=== PATIENT | male | born 1955 | race Caucasian/White ===

== ENCOUNTER 2018-01-15 05:22 | Inpatient (IN) | payer OTHER ==
[~2018-01-15] VITALS: Ht 170.2 cm; Wt 85.8 kg
[~2018-01-15 05:22] MED LIST: CIAL5TAB PO; MELO15TA20 PO; TRAM50TA PO
[2018-01-15] MEDS ORDERED: SODIUM CHLORID 0.9% 500 ML IV PRN (05:45)
[2018-01-15] MEDS ORDERED: METOPROLOL TARTRATE 25 MG TAB PO PRN (05:45)
[2018-01-15] MEDS ORDERED: LACTATED RINGER'S 1000 ML IV PRN (05:45)
[2018-01-15] MEDS ORDERED: CHLORHEXIDINE GLUCONATE 2 % 1 PACK (2 CLOTHS) TOPICAL PRN (05:45)
[2018-01-15] MEDS ORDERED: POVIDONE IODINE 5% (ANTISEPSIS KIT) 4 APPLICATIONS EACH NARE PRN (05:45)
[2018-01-15] MEDS ORDERED: VANCOMYCIN 1500 MG/NS 500 ML (for 85-99 kg) IV SCH ×2 (06:00)
[2018-01-15] MEDS ORDERED: POVIDONE IODINE 7.5% SCRUB 118 ML BOTTLE TOPICAL SCH (06:00)
[2018-01-15] MEDS ORDERED: ceFAZolin 2 GM PREMIX 50 ML IV SCH (06:00)
[2018-01-15] MEDS ORDERED: GENTAMICIN SULFATE 80 MG/2 ML VIAL ONE (06:03)
[2018-01-15] MEDS ORDERED: ACETAMINOPHEN 1000 MG/100 ML 100 ML IV ONE (06:43)
[2018-01-15] MEDS ORDERED: KETAMINE HCL 500 MG/5 ML VIAL ONE (06:43)
[2018-01-15] MEDS ORDERED: KETAMINE HCL 500 MG/10 ML VIAL ONE (06:44)
[2018-01-15] MEDS ORDERED: BUPIVACAINE LIPOSO PF 1.3% INJ 20 ML in SODIUM CHLORIDE 0.9% INJ 60 ML P-ARTICULR SCH (07:30)
[2018-01-15] MEDS ORDERED: SODIUM CHLORIDE 0.9% IV SCH ×2 (07:30→10:30)
[2018-01-15] MEDS ORDERED: TRANEXAMIC ACID IV SCH ×2 (07:30→10:30)
[2018-01-15] MEDS ORDERED: TRANEXAMIC ACID INJ 0 MG in SODIUM CHLORIDE 0.9% INJ 100 ML IV SCH (10:15)
[2018-01-15] MEDS ORDERED: DO NOT ADM ANY ANTICOAGULANT DRUGS PRN (10:18)
[2018-01-15] MEDS ORDERED: HYDR-3516 PO (10:20)
--- NOTE | 2018-01-15 10:23 | HHI.FF ---
Face to Face Verification Diagnosis: (1) S/P total hip arthroplasty Physical Therapy Gait training Hip: Total hip, Protocol: Right, Posterior hip precautions, Abduction pillow while in bed Right LE Weight Bearing: WB as tolerated Right LE Range of Motion: No ROM Nursing Nursing: Janusz teaching, Dressing changes (remove postop dressing on saturdayjanuary 22, daily primapore dressing) Dressing Changes: Coverderm/Primapore I have seen patient Anders Pappas on 01/15/18. My clinical findings support the need for the requested home health care services because: Limited ability to care for self Injectable med education/admin I certify that my clinical findings support that this patient is homebound because: Unsafe to leave home unassisted Unable to use public transportation Markel Sequeira MD Jan 15, 2018 10:23
[2018-01-15] MEDS ORDERED: ADJUSTABLE COMM1 MIS (10:25)
[2018-01-15] MEDS ORDERED: WALKER WHEELS/F1 MIS (10:25)
[2018-01-15] MEDS ORDERED: ONDANSETRON HCL 4 MG/2 ML VIAL IVP PRN (10:30)
[2018-01-15] MEDS ORDERED: NALOXONE HCL 0.4 MG/ML AMP IV PUSH PRN (10:30)
[2018-01-15] MEDS ORDERED: traMADol HCL 50 MG TAB PO PRN (10:30)
[2018-01-15] MEDS ORDERED: diphenhydrAMINE HCL 50 MG/ML VIAL IV PUSH PRN (10:30)
[2018-01-15] MEDS ORDERED: *morphine SULFATE 10 MG/ML PERIprocedure ONLY ONE (10:57)
[2018-01-15] MEDS: SODIUM CHLOR 0.9% 1000 ML INJ 1,000 ML IV SCH ×2 (11:00→21:27)
[2018-01-15] MEDS ORDERED: Post-op Orders (for Pharmacy) XX ONE (11:00)
--- NOTE | 2018-01-15 11:04 | MP ---
cc: Markel Sequeira MD DATE OF OPERATION: 01/15/2018 PREOPERATIVE DIAGNOSIS: Osteoarthritis, right hip. ADDITIONAL DIAGNOSES: 1. History of prostate cancer treated by radiation. 2. Lumbar spondylosis. POSTOPERATIVE DIAGNOSIS: Osteoarthritis, right hip. OPERATIVE PROCEDURE: Total hip replacement arthroplasty right hip using Biomet components. COMPONENTS: Cup 52 mm porous coated, 2 dome screws, flat polyethylene insert, stem 14 mm taper lock lateral offset, head 36 mm ceramic, -3 neck length. BIOPSY: Bone/tissue biopsy superior rim of the acetabulum. TECHNIQUE: After induction of general anesthesia with endotracheal intubation, Mitchell catheter was introduced because of his history of prostate cancer and the residual enlarged prostate. The patient was put on the right lateral position, supported with Biomet hip positioners. Axillary roll was placed, with the left leg properly protected, strict lateral position ascertained. The right hip and right lower extremity were thoroughly prepped with alcohol and ChloraPrep and draped in routine fashion. A lateral incision was made for posterior approach, deepened to subcutaneous tissue and fascia. Fibers of the gluteus diana were . The bursa was dissected and Charnley retractor was introduced. The hip was internally rotated followed by release of the short external rotators and capsule from the posterior aspect of the trochanter and then along the intertrochanteric line. There was bloody joint fluid. Once the joint was exposed subperiosteal elevation of the superior rim of the acetabulum under the gluteus medius was carried out, and the bone was quite soft and it looked abnormal including the soft tissue there. Therefore, because of the history of prostate cancer, 2 pieces of bone and tissue were sent. Frozen section came back as benign with no evidence of cancer or infection. MRI scan also was reviewed. He had a MRI scan a few weeks ago which did not report any other pathology other than the osteoarthritis. The hip was now dislocated and acetabular exposure was carried out by excising some of the anterior and inferior capsule. The acetabulum was first deepened and the final reamer used was 52 mm. A 52 mm trial fits well. A 52 mm Cornelius cup was impacted in place in 45 degrees of abduction, 20 degrees of anteversion. Two dome screws were placed. A flat polyethylene insert impacted in place. The femur was prepared following routine technique using cookie-cutter, canal finder and broaches to 14 mm broach which was sunk into the femur and about 5 mm of bone removed with the calcar reamer. Even prior to the broaching we took some additional bone off the femoral neck so it is not unduly long. We could not fit a pin in the acetabulum like I usually do prior to dislocation because of the soft bone and possible pathology there. The joint was reduced with a standard offset trial with -3 head. There is excellent stability, good leg length, no obvious pistoning. I had predetermined that I would use a lateral offset stem because of preoperative templating. The hip was dislocated. Trial implants were removed. A 14 mm stem was impacted in place, a lateral offset stem in about 15 to 20 degrees anteversion. A -3 ceramic ball was placed (36 mm). Final reduction was carried out. There is good position, alignment and stability. Limb length was compared to the opposite leg and appears good. The wound was irrigated with saline solution followed by reattachment of the short external rotators and capsule to the posterior margin of the trochanter with #2 FiberWire with 1 drill hole in the trochanter and 1 suture through the gluteus medius. A diluted solution of Exparel was injected all around in the subcutaneous tissue and subfascially. The joint was thoroughly lavaged and suctioned out. The fascia was closed with a couple of #2 Vicryl sutures interrupted and a running #2 Quill, subcutaneous tissue with 2-0 Vicryl, skin with 3-0 Quill and Steri-Strips. Alginate dressing was then applied and the patient was transferred to the recovery room in satisfactory condition. The patient tolerated the procedure well. TRANSFUSIONS AND COMPLICATIONS: None. POSTOP CONDITION: Satisfactory. ESTIMATED BLOOD LOSS: 250 mL Markel Sequeira MD SS/TL/ , 10:05 AM , 10:36 AM
[2018-01-15] MEDS: MORPHINE SULFATE 30 MG/30 ML PCA IV SCH (11:09)
--- NOTE | 2018-01-15 11:57 | RADRPT ---
EXAM DATE/TIME: 01/15/2018 10:41 [facility] COMPARISON: No previous studies available for comparison. INDICATIONS : Post op right total hip replacement. MEDICAL HISTORY : None. SURGICAL HISTORY : None. ENCOUNTER: Initial ACUITY: 1 day PAIN SCORE: 4/10 LOCATION: Right Hip FINDINGS: Postoperative right total hip replacement. Normal alignment. Air in the soft tissues. CONCLUSION: 1. Postoperative right total hip replacement. Mohamud Lara MD on January 15, 2018 at 11:54 Board Certified Radiologist. This report was verified electronically.
[2018-01-15] MEDS ORDERED: ROCURONIUM INJ 50 MG/5 ML SYRINGE IV PUSH ONE (12:00)
[2018-01-15] MEDS ORDERED: STERILE WATER FOR INJECTION 20 ML VIAL IV ONE (12:00)
[2018-01-15] MEDS ORDERED: GLYCOPYRROLATE 1 MG/5 ML SYRINGE IV PUSH ONE (12:00)
[2018-01-15] MEDS ORDERED: LIDOCAINE HCL 1% PF 5 ML SYRINGE OTHER ONE (12:00)
[2018-01-15] MEDS ORDERED: LACTATED RINGER'S 1000 ML INJ 2,000 ML IV ONE (12:00)
[2018-01-15] MEDS ORDERED: PROPOFOL 200 MG/20 ML AMP IV ONE (12:00)
[2018-01-15] MEDS ORDERED: ePHEDrine/NS 25 MG/5 ML SYRINGE IV ONE (12:00)
[2018-01-15] MEDS ORDERED: PHENYLEPH/NS 1000 MCG/10 ML SYR IV ONE (12:00)
[2018-01-15] MEDS ORDERED: ACETAMINOPHEN 1000 MG/100 ML VIAL IV SCH (12:00)
[2018-01-15] MEDS ORDERED: ONDANSETRON HCL 4 MG/2 ML VIAL IV ONE (12:00)
[2018-01-15] MEDS ORDERED: DEXAMETHASONE SOD PHOS 4 MG/ML VIAL IV ONE (12:00)
[2018-01-15 12:15] VITALS: BP 140/80; PULSE 90; RESP 18; TEMP 96.3; O2SAT 98
[2018-01-15] MEDS: ceFAZolin 2 GM PREMIX 50 ML IV SCH ×2 (14:00→22:23)
[2018-01-15] MEDS: PCA - TOTAL MG MORPHINE DELIVERED PER SHIFT SCH ×2 (14:00→22:00)
[2018-01-15 16:00] VITALS: BP 117/74; PULSE 92; RESP 18; TEMP 96.4; O2SAT 98
[2018-01-15 20:45] VITALS: BP 118/68; PULSE 64; RESP 17; TEMP 97.1; O2SAT 96
[2018-01-15] MEDS ORDERED: KETOROLAC TROMETHAMINE 30 MG/ML (IVP) VIAL IVP SCH (21:00)
[2018-01-15] MEDS ORDERED: TEMAZEPAM 15 MG CAP PO PRN (21:00)
[2018-01-15] MEDS: ACETAMINOPHEN 1000 MG/100 ML VIAL IV SCH (21:25)
[2018-01-15] MEDS: TAMSULOSIN HCL 0.4 MG CAP PO SCH (21:27)
[2018-01-15] MEDS: INDOMETHACIN 75 MG CONTROLLED RELEASE CAP PO SCH (22:23)
[2018-01-15] MEDS ORDERED: VANCOMYCIN 1,500 MG/NS 500 ML IV ONE ×2 (23:00)
[2018-01-15] MEDS ORDERED: VANCOMYCIN INJ 1.5 GM in SODIUM CHLOR 0.9% 250 ML INJ 250 ML IV SCH (23:00)
[2018-01-16 00:10] VITALS: BP 104/58; PULSE 67; RESP 16; TEMP 97.2; O2SAT 94
[2018-01-16] MEDS: MORPHINE SULFATE 30 MG/30 ML PCA IV SCH (00:42)
[2018-01-16] MEDS: SODIUM CHLOR 0.9% 1000 ML INJ 1,000 ML IV SCH ×3 (02:30→18:30)
[2018-01-16] MEDS: ceFAZolin 2 GM PREMIX 50 ML IV SCH (02:40)
[2018-01-16 04:00] VITALS: BP 107/68; PULSE 73; RESP 16; TEMP 98.2; O2SAT 97
[2018-01-16 04:04] LABS: HEMATOCRIT 39.2 % (39.0-51.0); HEMOGLOBIN 13.6 GM/DL (13.0-17.0)
[2018-01-16 04:24] LABS: BICARBONATE 25.4 MEQ/L (21.0-32.0); CALCIUM 8.4 MG/DL (8.5-10.1); CREATININE 0.91 MG/DL (0.60-1.30)
[2018-01-16] MEDS: PCA - TOTAL MG MORPHINE DELIVERED PER SHIFT SCH ×3 (06:00→19:44)
[2018-01-16] MEDS: ACETAMINOPHEN 1000 MG/100 ML VIAL IV SCH ×2 (06:38→18:44)
--- NOTE | 2018-01-16 07:37 | PD.ORT.PN ---
Subjective Post Op Day #: 1 Pain Scale: 4 Subjective Remarks OK, hiccups Objective Vitals Last 72 hours Impressions Hip X-Ray 01/15/18 0000 Signed Impressions: Service Date/Time: Monday, January 15, 2018 10:41 - CONCLUSION: 1. Postoperative right total hip replacement. Mohamud Lara MD Vital Signs Date Time Temp Pulse Resp B/P (MAP) Pulse Ox O2 Delivery O2 Flow Rate FiO2 01/16/18 06:57 18 01/16/18 06:00 18 01/16/18 04:00 98.2 73 16 107/68 (81) 97 01/16/18 00:42 18 01/16/18 00:10 97.2 67 16 104/58 (73) 94 01/15/18 23:20 Room Air 01/15/18 22:00 18 01/15/18 20:45 97.1 64 17 118/68 (85) 96 01/15/18 16:00 96.4 92 18 117/74 (88) 98 01/15/18 12:15 96.3 90 18 140/80 (100) 98 01/15/18 11:45 97.6 85 16 126/75 (92) 99 01/15/18 11:09 12 01/15/18 11:00 84 15 138/69 (92) 100 01/15/18 10:45 80 16 133/64 (87) 100 01/15/18 10:30 76 12 112/68 (83) 99 Nasal Cannula 2 01/15/18 10:23 97.6 84 12 118/64 (82) 95 Nasal Cannula 2 I/O 01/15/18 01/15/18 01/15/18 01/16/18 01/16/18 01/16/18 06:59 14:59 22:59 06:59 14:59 22:59 Intake Total 2158 ml 720 ml Output Total 3550 ml 1500 ml Balance -1392 ml -780 ml Intake Oral 720 ml IV Total 2158 ml Output Urine Total 350 ml 1500 ml Estimated Blood Loss 200 ml Other 3000 ml # Bowel Movements 0 Result Diagram: 01/16/18 0328 01/16/18 0328 Objective Remarks A,A, and O sitting OOB, comfortable, moves toes well. right lower in good orientation Assessment & Plan Ortho Post Op Day #: 1 Problem List: Assessment and Plan Sat post op EAGLE Indocin could be causing dispepsia Add protonix DC indocin if GI problems persist Initial path report negative Markel Sequeira MD Jan 16, 2018 07:37
[2018-01-16 08:00] VITALS: BP 100/57; PULSE 89; RESP 18; TEMP 97.1; O2SAT 95
[2018-01-16] MEDS: TAMSULOSIN HCL 0.4 MG CAP PO SCH ×2 (08:08→21:28)
[2018-01-16] MEDS: INDOMETHACIN 75 MG CONTROLLED RELEASE CAP PO SCH (08:08)
[2018-01-16] MEDS: ENOXAPARIN SODIUM 30 MG/0.3 ML SYRINGE SQ SCH (08:08)
[2018-01-16] MEDS: PANTOPRAZOLE SOD 40 MG DELAYED RELEASE TAB PO SCH (08:08)
[2018-01-16 11:33] VITALS: BP 153/74; PULSE 83; RESP 18; TEMP 97.1; O2SAT 100
[2018-01-16] MEDS: ACETAMINOPHEN/HYDROcodone 325 MG/5 MG TAB PO PRN ×3 (11:46→22:33)
[2018-01-16 14:43] VITALS: BP 118/64; PULSE 80; RESP 18; TEMP 98.4; O2SAT 97
[2018-01-16 20:00] VITALS: BP 110/66; PULSE 77; RESP 15; TEMP 97.8; O2SAT 96
[2018-01-16] MEDS: DOCUSATE SODIUM 100 MG CAP PO SCH (21:28)
[2018-01-17] VITALS: BP 108/55; PULSE 74; RESP 16; TEMP 96.5; O2SAT 96
[2018-01-17] MEDS: SODIUM CHLOR 0.9% 1000 ML INJ 1,000 ML IV SCH ×2 (02:30→10:30)
[2018-01-17] MEDS: ACETAMINOPHEN 1000 MG/100 ML VIAL IV SCH (06:20)
[2018-01-17] MEDS ORDERED: ENOX30P SQ (07:35)
[2018-01-17] MEDS ORDERED: PANT40TA3 PO (07:35)
[2018-01-17] MEDS ORDERED: INDO75CA3 PO (07:35)
--- NOTE | 2018-01-17 07:39 | PD.ORT.PN ---
Subjective Post Op Day #: 2 Pain Scale: 2 Subjective Remarks no more hiccups, readyto leave today Distance Walked all over Objective Vitals Vital Signs Date Time Temp Pulse Resp B/P (MAP) Pulse Ox O2 Delivery O2 Flow Rate FiO2 01/17/18 06:50 18 01/17/18 00:00 96.5 74 16 108/55 (72) 96 01/16/18 23:13 18 01/16/18 22:52 Room Air 01/16/18 20:00 97.8 77 15 110/66 (81) 96 01/16/18 14:43 98.4 80 18 118/64 (82) 97 01/16/18 14:00 18 01/16/18 11:33 97.1 83 18 153/74 (100) 100 01/16/18 08:00 97.1 89 18 100/57 (71) 95 I/O 01/16/18 01/16/18 01/16/18 01/17/18 01/17/18 01/17/18 07:00 15:00 23:00 07:00 15:00 23:00 Intake Total 1285 ml 960 ml 360 ml Output Total 1500 ml 800 ml 500 ml Balance -215 ml 960 ml -800 ml -140 ml Intake Oral 720 ml 960 ml 360 ml IV Total 565 ml Output Urine Total 1500 ml 800 ml 500 ml # Voids 2 3 # Bowel Movements 0 0 0 Result Diagram: 01/16/18 0328 01/16/18 0328 Objective Remarks A,A, and O in bed with abdn pillow, comfortable, moves toes well. right lower in good orientation Assessment & Plan Ortho Post Op Day #: 2 Problem List: Assessment and Plan Sat post op EAGLE DC with [facility], indocin sr 75 x 19 days, hydrocodone., lovenox 30 x 12, and protonix to see me Saturday 01/27 Markel Sequeira MD Jan 17, 2018 07:39
[2018-01-17] MEDS: PANTOPRAZOLE SOD 40 MG DELAYED RELEASE TAB PO SCH (07:51)
[2018-01-17] MEDS: INDOMETHACIN 75 MG CONTROLLED RELEASE CAP PO SCH (07:51)
[2018-01-17] MEDS: DOCUSATE SODIUM 100 MG CAP PO SCH (07:51)
[2018-01-17] MEDS: TAMSULOSIN HCL 0.4 MG CAP PO SCH (07:51)
[2018-01-17] MEDS: ACETAMINOPHEN/HYDROcodone 325 MG/5 MG TAB PO PRN (07:52)
[2018-01-17] MEDS: ENOXAPARIN SODIUM 30 MG/0.3 ML SYRINGE SQ SCH (07:59)
[2018-01-17 08:00] VITALS: BP 144/86; PULSE 84; RESP 16; TEMP 96.6; O2SAT 99
[2018-01-17 08:57] VITALS: RESP 18
== END 2018-01-17 11:14 | disposition home health service (06) | DRG 470 ==
LOC: HSDI 05:22 → N06B 12:12
PROVIDERS: ADMIT Orthopaedic Surgery; ATTEND Orthopaedic Surgery
PROC: 0QB40ZX Excision of Right Acetabulum, Open Approach, Diagnostic (ICD-10-PCS; 2018-01-15)
PROC: 0SR904A Replacement of Right Hip Joint with Ceramic on Polyethylene Synthetic Substitute, Uncemented, Open Approach (ICD-10-PCS; principal; 2018-01-15 07:11)
DX: M16.11 Unilateral primary osteoarthritis, right hip (principal); M47.816 Spondylosis without myelopathy or radiculopathy, lumbar region; Z85.46 Personal history of malignant neoplasm of prostate; Z92.3 Personal history of irradiation
CPT/HCPCS: 73502; 80048; 85014; 85018; 86850; 86900; 86901; 88307; 88331; 94150; C1776; C9290; J0131; J0690; J1100; J1580; J1650; J2270; J2370; J2405; J3010; J3370; J7030; J7040; J7120